=== PATIENT | male | born 1985 | race African-American/Black ===

== ENCOUNTER 2018-08-13 19:13 | Emergency (ER) | payer OTHER ==
[~2018-08-13] VITALS: Ht 170.2 cm; Wt 77.1 kg
[2018-08-13 19:14] VITALS: BP 126/83
== END 2018-08-13 20:35 | disposition left against medical advice (07) ==
LOC: MED 19:13
DX: M25.562 Pain in left knee (principal); Z53.21 Procedure and treatment not carried out due to patient leaving prior to being seen by health care provider
CPT/HCPCS: 99281